=== PATIENT | female | born 1960 | race Caucasian/White ===

== ENCOUNTER 2021-11-18 21:09 | Inpatient (IN) | payer MEDICAID, SELFPAY ==
[~2021-11-18] VITALS: Ht 158.2 cm; Wt 96.6 kg
[2021-11-18 21:35] VITALS: BP 157/72
--- NOTE | 2021-11-18 21:40 | NUR ---
pt taken to lobby.
[2021-11-18] MEDS ORDERED: HYDROcodone/APAP 5/325 MG 1 TAB TAB PO ONE (22:20)
[2021-11-18 23:22] LABS: APPEARANCE,URINE CLEAR (CLEAR); BILIRUBIN,URINE NEGATIVE (NEGATIVE); BLOOD, URINE 1+ (NEGATIVE); COLOR,URINE YELLOW (YELLOW); LEUKOCYTE ESTERASE ,URINE TRACE (NEGATIVE); NITRITE, URINE NEGATIVE (NEGATIVE); PH,URINE 5.5 (5.0-9.0); UGLUCOSE NEGATIVE (NEGATIVE)
[2021-11-18 23:34] LABS: RBC,URINE 0-5 /HPF (0-5)
[2021-11-18 23:38] LABS: BASOPHILS % (AUTO) 0.3 % (0.0-2.0); EOSINOPHILS # (AUTO) 0.2 K/uL (0-0.4); EOSINOPHILS % (AUTO) 3.1 % (0.0-4.0); HEMOGLOBIN 9.7 g/dL (12.0-16.0); LYMPHOCYTES # (AUTO) 2.2 K/uL (2.5-16.5); LYMPHOCYTES % (AUTO) 28.2 % (20.5-51.1); MEAN CORPUSCULAR HEMOGLOBIN 26 pg (27-31); MEAN CORPUSCULAR HGB CONC 33 g/dL (33-37); MONOCYTES # (AUTO) 0.6 K/uL (0.8-1.0); MONOCYTES % (AUTO) 7.3 % (1.7-9.3); NEUTROPHILS # (AUTO) 4.8 K/uL (1.8-7.7); NEUTROPHILS % (AUTO) 61.1 % (42.2-75.2); PLATELET COUNT (AUTO) 239 K/uL (140-450); RED BLOOD CELL COUNT(AUTO) 3.67 MIL/uL (4.20-5.40); RED CELL DISTRIBUTION WIDTH 16.3 % (11.6-13.7); WHITE BLOOD COUNT (AUTO) 7.9 K/uL (4.8-10.8)
[2021-11-19 00:01] LABS: ANION GAP 11.3 (8-16); CARBON DIOXIDE 27.3 mmol/L (21-32); POTASSIUM 4.6 mmol/L (3.5-5.1); TOTAL BILIRUBIN 0.5 mg/dL (0.0-1.0)
[2021-11-19 00:42] LABS: ALBUMIN 3.7 g/dL (3.4-5.0)
--- NOTE | 2021-11-19 01:38 | NUR ---
PT TAKEN TO BED 9
--- NOTE | 2021-11-19 01:45 | NUR ---
61 Y/O FEMALE BIB SELF, C/O RUQ PAIN (9/10) X3 MONTHS. DENIES DIARRHEA, CONFIRMS N/V; SKIN IS PINK/WARM/DRY; AAOX4 WITH EVEN AND STEADY GAIT; LUNGS CLEAR BL; HR EVEN AND REGULAR; PT DENIES ANY FEVER, CP, SOB, OR COUGH AT THIS TIME; PATIENT STATES PAIN OF 9/10 AT THIS TIME; VSS; PATIENT POSITIONED FOR COMFORT; HOB ELEVATED; BEDRAILS UP X1; BED DOWN. ER MD MADE AWARE OF PT STATUS. HX: GALSTONES, HTN, HEART STENT X3 MO AGO [facility]
[2021-11-19] MEDS ORDERED: PIPERACILLIN/TAZOBACTAM 3.375 GM in DEXTROSE 5% 50 ML IV ONE (03:00)
[2021-11-19] MEDS ORDERED: MORPHINE SULFATE 4 MG/ML SYR IVP ONE (03:00)
[2021-11-19] MEDS ORDERED: PIPERACILLIN/TAZOBACTAM 3.375 GM VIAL IV ONE ×3 (03:07→18:04)
[2021-11-19] MEDS ORDERED: HYDROcodone/APAP 7.5/325 MG 1 TAB PO PRN (03:30)
[2021-11-19] MEDS ORDERED: MORPHINE SULFATE 4 MG/ML SYR IVP PRN (03:30)
[2021-11-19] MEDS ORDERED: ATOR40TA PO (05:27)
[2021-11-19] MEDS ORDERED: GLIP5TER PO (05:27)
[2021-11-19] MEDS ORDERED: CARV12.5 PO (05:27)
[2021-11-19] MEDS ORDERED: PANT40EC PO (05:27)
[2021-11-19] MEDS ORDERED: FAMO-92 PO (05:27)
[2021-11-19] MEDS ORDERED: LISI-487 PO (05:27)
[2021-11-19] MEDS ORDERED: TICA60TA PO (05:27)
[2021-11-19] MEDS ORDERED: FURO-570 PO (05:27)
[2021-11-19] MEDS ORDERED: METF-350 PO (05:27)
--- NOTE | 2021-11-19 06:06 | NUR ---
COVID/JAVIER SWAB COLLECTED AND HANDED TO SPARERIBS TRIMMER
[2021-11-19] MEDS ORDERED: ONDANSETRON 4 MG/2 ML VIAL IVP PRN ×2 (07:05→07:25)
--- NOTE | 2021-11-19 07:23 | NUR ---
Report and continuation of care received from DEVI Klein.
--- NOTE | 2021-11-19 07:23 | NUR ---
GIVEN TRANSFER OF CARE REPORT TO DARIN QUINONEZ
[2021-11-19] MEDS ORDERED: ZOLPIDEM 5 MG TAB PO PRN (07:25)
--- NOTE | 2021-11-19 07:45 | NUR ---
Received patient resting in semi-fowlers position with rn cardiac in place. Patient awake A&Ox4, [place] speaking, denies headache, states 3/10 abdominal pain at this time; denies nausea. Additional warm blanket provided per request. Bed locked in lowest position, side rails x 1.
[2021-11-19] MEDS: NACL 0.9% 1,000 ML IV SCH (07:55)
--- NOTE | 2021-11-19 08:31 | NUR ---
Patient appears to be resting comfortably in bed. Vital Signs within normal limits. Respirations even and unlabored.
[2021-11-19 08:40] LABS: BASOPHILS % (AUTO) 0.4 % (0.0-2.0); EOSINOPHILS # (AUTO) 0.4 K/uL (0-0.4); EOSINOPHILS % (AUTO) 4.5 % (0.0-4.0); HEMATOCRIT 27.4 % (36-48); HEMOGLOBIN 9.3 g/dL (12.0-16.0); LYMPHOCYTES # (AUTO) 2.6 K/uL (2.5-16.5); MEAN CORPUSCULAR HEMOGLOBIN 27 pg (27-31); MEAN CORPUSCULAR HGB CONC 34 g/dL (33-37); MEAN CORPUSCULAR VOLUME 79.2 fL (80-94); MONOCYTES # (AUTO) 0.8 K/uL (0.8-1.0); MONOCYTES % (AUTO) 10.1 % (1.7-9.3); NEUTROPHILS # (AUTO) 4.1 K/uL (1.8-7.7); PLATELET COUNT (AUTO) 217 K/uL (140-450); RED BLOOD CELL COUNT(AUTO) 3.46 MIL/uL (4.20-5.40); RED CELL DISTRIBUTION WIDTH 15.9 % (11.6-13.7); WHITE BLOOD COUNT (AUTO) 7.8 K/uL (4.8-10.8)
--- NOTE | 2021-11-19 08:51 | NUR ---
PATIENT HAS BEEN SCREENED AND CATEGORIZED LOW NUTRITION RISK. PATIENT WILL BE SEEN WITHIN 7 DAYS OF ADMISSION. 11/26/21 JAMARCUS GATES MS, RDN
[2021-11-19 09:09] LABS: ANION GAP 15.4 (8-16); CARBON DIOXIDE 25.1 mmol/L (21-32); CREATININE 0.8 mg/dL (0.6-1.3); POTASSIUM 4.5 mmol/L (3.5-5.1)
[2021-11-19 09:55] LABS: MAGNESIUM 2.1 mg/dL (1.8-2.4); PHOSPHORUS 4.4 mg/dL (2.5-4.9)
--- NOTE | 2021-11-19 10:36 | NUR ---
Patient disconnected from bug trimmer; ambulated to restroom with steady/even gait.
--- NOTE | 2021-11-19 10:42 | NUR ---
Pt back into bed + hospital monitor. IVF continued. Bed locked in lowest position, side rails x 1.
[2021-11-19] MEDS ORDERED: DEXTROSE 50% 50 ML SYR IVP PRN (12:20)
[2021-11-19] MEDS: PIPERACILLIN/TAZOBACTAM 3.375 GM in DEXTROSE 5% 50 ML IV SCH ×2 (12:40→18:14)
--- NOTE | 2021-11-19 12:51 | NUR ---
Patient states pain 3/10, no request for additional pain meds at this time. Advised to utilize call light for increased pain. All pt needs met.
--- NOTE | 2021-11-19 13:23 | NUR ---
IV site patent; flushed with 5mL NS with blood return.
--- NOTE | 2021-11-19 14:05 | NUR ---
Patient resting with media monitor and maintenance IVF running. Denies nausea/pain at this time. All needs met. child monitor in place. VSS. Respirations even/unlabored.
--- NOTE | 2021-11-19 15:45 | NUR ---
Patient appears to be resting comfortably in bed. Vital Signs within normal limits. Respirations even and unlabored.
[2021-11-19] MEDS: BLOOD GLUCOSE MONITORING 1 DEV DEV FS SCH ×2 (16:53→20:45)
--- NOTE | 2021-11-19 17:32 | NUR ---
Patient appears to be resting comfortably in bed. Vital Signs within normal limits. Respirations even and unlabored.
--- NOTE | 2021-11-19 18:17 | NUR ---
Pt ambulated to restroom with steady/even gait.
--- NOTE | 2021-11-19 19:12 | NUR ---
Report and transfer of care given to DEVI Slade.
--- NOTE | 2021-11-19 19:25 | NUR ---
ASSUMED CARE OF THIS PATIENT
--- NOTE | 2021-11-19 20:03 | NUR ---
REPORT GIVEN TO TRUONG QUINONEZ AT THIS TIME. TO BE TAKEN TO BED 120B AT THIS TIME TELE
[2021-11-19] MEDS: ATORVASTATIN 20 MG TAB PO SCH (20:46)
[2021-11-19] MEDS: carvediloL 12.5 MG TAB PO SCH (20:46)
--- NOTE | 2021-11-19 21:40 | NUR ---
RECEIVED PT ADMITTED FROM ER VIA RPLACEDO. PT A&OX4, AMBULATES .BERMUDIAN SPEAKING NPO EXCEPT MEDS. EDUCATED PT RE: BS= 124 NO COVERAGE NEEDED.IV 22G IN LAC SL PATENT. VSS: BP: 155/59, P: 61, RR: 18, T: 98.7, O2 SAT:98% ON ROOM AIR. ORIENTED TO ROOM CALL LIGHT TV, AND BED CONTROL. DENIES PAIN. ALL SAFETY MEASURES IN PLACE. WILL CONTINUE TO MONITOR.
--- NOTE | 2021-11-19 22:00 | NUR ---
HS MEDS TAKEN W/SIPS OF WATER. REMAINS NPO. DENIES PAIN BUT STATES THERE IS TIGHTNESS IN HER RUQ. CALL LIGHT WITHIN REACH.
--- NOTE | 2021-11-19 22:40 | NUR ---
BS= 124 NO COVERAGE NEEDED.PT IS COOPERATIVE. VERBALIZES UNDERSTANDING WHY SHE IS NPO EXCEPT MEDS SPOUSE WAS WITH PT IN THE ER. HIS CONTACT INFO FROM THE CHART IS: MARY FERNANDEZ [place]TONIO[place]. [address] . ALL SAFETY MEASURES IN PLACE. CONTINUE TO OBSERVE.
--- NOTE | 2021-11-20 | NUR ---
TOLERATED ZOSYN IVPB WELL NO ADVERSE EFFECTS. CALLS TO GET UP AMBULATED WITH STEADY GAIT TO BATHROOM X1 VOIDED NO BM.O2 SAT 98% ON ROOM AIR. ALL SAFETY MEASURES IN PLACE.
[2021-11-20] MEDS: PIPERACILLIN/TAZOBACTAM 3.375 GM in DEXTROSE 5% 50 ML IV SCH ×5 (00:40→23:01)
[2021-11-20] MEDS ORDERED: PIPERACILLIN/TAZOBACTAM 3.375 GM VIAL IV ONE ×2 (00:51→05:05)
[2021-11-20 04:00] VITALS: BP 145/45
--- NOTE | 2021-11-20 06:30 | NUR ---
VSS: BP:145/45, P:60, RR:18, T:97.6, O2 SAT 98% ON ROOM AIR BS= 99 NO INSULIN COVERAGE NEEDED.
[2021-11-20 06:47] LABS: BASOPHILS % (AUTO) 0.6 % (0.0-2.0); EOSINOPHILS # (AUTO) 0.3 K/uL (0-0.4); EOSINOPHILS % (AUTO) 4.9 % (0.0-4.0); HEMATOCRIT 26.9 % (36-48); LYMPHOCYTES # (AUTO) 1.9 K/uL (2.5-16.5); LYMPHOCYTES % (AUTO) 30.6 % (20.5-51.1); MEAN CORPUSCULAR HEMOGLOBIN 27 pg (27-31); MEAN CORPUSCULAR HGB CONC 33 g/dL (33-37); MEAN CORPUSCULAR VOLUME 79.5 fL (80-94); MONOCYTES # (AUTO) 0.5 K/uL (0.8-1.0); MONOCYTES % (AUTO) 8.9 % (1.7-9.3); NEUTROPHILS # (AUTO) 3.4 K/uL (1.8-7.7); PLATELET COUNT (AUTO) 207 K/uL (140-450); RED BLOOD CELL COUNT(AUTO) 3.39 MIL/uL (4.20-5.40); RED CELL DISTRIBUTION WIDTH 15.4 % (11.6-13.7); WHITE BLOOD COUNT (AUTO) 6.2 K/uL (4.8-10.8)
[2021-11-20] MEDS: BLOOD GLUCOSE MONITORING 1 DEV DEV FS SCH ×4 (06:47→20:49)
--- NOTE | 2021-11-20 07:20 | NUR ---
ENDORSED REPORT TO DAY SHIFT RN FOR CONTINUITY OF CARE. SURGICAL CONSENT ON CHART. DR BROWN NEEDS TO EXPLAIN PROCEDURE TO PT. EACH NEEDS TO SIGN THE CONSENT. DAY SHIFT TO FOLLOW UP.
--- NOTE | 2021-11-20 07:30 | NUR ---
RECEIVED PT AAOX4. NO SOB NOTED. NO C/O PAIN AT THIS TIME. IV TO LAC PATENT AND INTACT. CHEST, DIMINISHED AIR ENTRY TO THE BASES. ABDOMEN SOFT, BOWEL SOUNDS PRESENT. NO EDEMA NOTED. NPO MAINTAINED. INSTRUCTED PT TO CALL FOR ASSISTANCE, CALL LIGHT WITHIN REACH, PT VERBALIZED UNDERSTANDING.
[2021-11-20 07:31] LABS: ANION GAP 14.4 (8-16); CARBON DIOXIDE 23.7 mmol/L (21-32); CREATININE 0.8 mg/dL (0.6-1.3); POTASSIUM 4.1 mmol/L (3.5-5.1)
[2021-11-20 07:59] LABS: PHOSPHORUS 4.1 mg/dL (2.5-4.9)
[2021-11-20 08:00] VITALS: BP 151/76
[2021-11-20] MEDS: lisinopriL 20 MG TAB PO SCH (09:58)
[2021-11-20] MEDS: FUROSEMIDE 40 MG TAB PO SCH (09:58)
[2021-11-20] MEDS: carvediloL 12.5 MG TAB PO SCH ×2 (09:58→20:42)
[2021-11-20] MEDS: PANTOPRAZOLE 40 MG TABEC PO SCH (09:58)
--- NOTE | 2021-11-20 11:05 | NUR ---
SPOKE WITH DR. BROWN ON THE PHONE, STATED HE WILL COME TO SEE PT SOON. PT NOTIFIED, VERBALIZED UNDERSTANDING. NPO MAINTAINED ORDERED.
[2021-11-20 12:00] VITALS: BP 151/68
--- NOTE | 2021-11-20 13:30 | NUR ---
PT SEEN BY DR. BROWN AT THE BEDSIDE. NO SURGICAL INTERVENTION AT THIS TIME. PT TOLERATED CLEAR LIQUIDS. NO C/O ABDOMINAL PAIN. WILL CONTINUE TO MONITOR.
[2021-11-20 16:00] VITALS: BP 150/65
--- NOTE | 2021-11-20 18:30 | NUR ---
PT TOLERATED FULL LIQUIDS FOR DINNER. WILL NOTIFY DR. LOPEZ.
[2021-11-20] MEDS: INSULIN LISPRO SLIDING SCALE 100 UNITS/ML VIAL SUBQ PRN ×2 (18:34→20:50)
[2021-11-20] MEDS: NACL 0.9% 1,000 ML IV SCH ×2 (18:36)
--- NOTE | 2021-11-20 19:12 | NUR ---
SPOKE WITH DR. LOPEZ, STATED HE WILL KEEP PT TONIGHT AND SEE HOW HER BLOOD WORKS IN AM WILL GHAZALA WILL GO FROM THERE. PT MADE AWARE, VERBALIZED UNDERSTANDING.
--- NOTE | 2021-11-20 19:36 | NUR ---
PT RESTING. NO SOB NOTED. NO SIGNS OF PAIN ENDORSED TO NEXT SHIFT NURSE FOR CONTINUITY OF CARE.
--- NOTE | 2021-11-20 19:40 | NUR ---
PT RESTING IN BED NO C/O PAIN OR DISTRESS NOTED.POC DISCUSSED WITH AM NURSE FOR CONTINUITY OF CARE.
[2021-11-20 20:00] VITALS: BP 151/76
[2021-11-20] MEDS: ATORVASTATIN 20 MG TAB PO SCH (20:42)
--- NOTE | 2021-11-20 21:00 | NUR ---
HS MEDS GIVEN. PT TOLERATED IT WELL. VSS AFEBRILE. BS= 153, COVERED WITH 2UNITS HUMALOG INSULIN PER SLIDING SCALE. PT STABLE. ALL SAFETY MEASURES IN PLACE.
[2021-11-21] VITALS: BP 129/54
[2021-11-21] MEDS: NACL 0.9% 1,000 ML IV SCH (00:12)
--- NOTE | 2021-11-21 00:36 | NUR ---
ZOSYN IVPB INFUSED NO REACTION NOTED. PT COOPERATIVE. SLEEPING BUT EASILY AROUSABLE. NAD.CALL LIGHT WITHIN REACH. CONTINUE TO OBSERVE.
[2021-11-21] MEDS: PIPERACILLIN/TAZOBACTAM 3.375 GM in DEXTROSE 5% 50 ML IV SCH ×2 (05:07→11:39)
[2021-11-21] MEDS: BLOOD GLUCOSE MONITORING 1 DEV DEV FS SCH ×3 (06:54→16:32)
--- NOTE | 2021-11-21 07:15 | NUR ---
ENDORSED PT REPORT TO AM RN. BS= 109 NO COVERAGE NEEDED. NO SURGERY NEEDED PER DR. BROWN IN HIS PROGRESS NOTES. JOHN ROMAN WAITING FOR RESULTS OF AM LAB DRAW. NO ORDER FOR DISCHARGE YET. CNTINUE TO MONITOR.
[2021-11-21 07:21] LABS: BASOPHILS % (AUTO) 0.5 % (0.0-2.0); EOSINOPHILS # (AUTO) 0.4 K/uL (0-0.4); EOSINOPHILS % (AUTO) 5.2 % (0.0-4.0); HEMATOCRIT 27.5 % (36-48); HEMOGLOBIN 9.3 g/dL (12.0-16.0); LYMPHOCYTES # (AUTO) 2.2 K/uL (2.5-16.5); LYMPHOCYTES % (AUTO) 31.4 % (20.5-51.1); MEAN CORPUSCULAR HEMOGLOBIN 27 pg (27-31); MEAN CORPUSCULAR HGB CONC 34 g/dL (33-37); MEAN CORPUSCULAR VOLUME 78.6 fL (80-94); MONOCYTES # (AUTO) 0.6 K/uL (0.8-1.0); MONOCYTES % (AUTO) 8.1 % (1.7-9.3); NEUTROPHILS # (AUTO) 3.8 K/uL (1.8-7.7); NEUTROPHILS % (AUTO) 54.8 % (42.2-75.2); PLATELET COUNT (AUTO) 224 K/uL (140-450)
[2021-11-21 07:29] LABS: ANION GAP 13.1 (8-16); CARBON DIOXIDE 26.5 mmol/L (21-32); CREATININE 0.9 mg/dL (0.6-1.3); POTASSIUM 3.6 mmol/L (3.5-5.1)
[2021-11-21 07:48] LABS: MAGNESIUM 1.8 mg/dL (1.8-2.4); PHOSPHORUS 3.9 mg/dL (2.5-4.9)
[2021-11-21] MEDS: FUROSEMIDE 40 MG TAB PO SCH (08:42)
[2021-11-21] MEDS: PANTOPRAZOLE 40 MG TABEC PO SCH (08:42)
[2021-11-21] MEDS: carvediloL 12.5 MG TAB PO SCH (08:42)
[2021-11-21] MEDS: lisinopriL 20 MG TAB PO SCH (08:42)
--- NOTE | 2021-11-21 10:48 | NUR ---
PT STABLE. NO S/S OF DISTRESS. BREATHING SYMMETRICAL. CALL LIGHT IN REACH. ALL SAFETY MEASURES IN PLACE
[2021-11-21] MEDS ORDERED: LEVO750T51 PO (11:09)
[2021-11-21] MEDS: INSULIN LISPRO SLIDING SCALE 100 UNITS/ML VIAL SUBQ PRN (11:40)
[2021-11-21 12:00] VITALS: BP 132/58
[2021-11-21 12:38] VITALS: BP 132/58
[2021-11-21 16:00] VITALS: BP 135/72
--- NOTE | 2021-11-21 16:43 | NUR ---
PT DISCHARGED HOME WITH FAMILY IN PERSONAL VEHICLE. ALL PERSONAL BELONGINGS IN POSSESSION. PT STABLE. IV REMOVED, CANULA INTACT. PT TOLERATED WELL. ID BANDS REMOVED. ALL SAFETY MEASURES IN PLACE
== END 2021-11-21 16:40 | disposition home or self-care (01) ==
LOC: MED 21:09 → MTU 11-19 03:36
PROVIDERS: ADMIT General Practice; ATTEND General Practice
DX: K81.0 Acute cholecystitis (principal); F03.90 Unspecified dementia, unspecified severity, without behavioral disturbance, psychotic disturbance, mood disturbance, and anxiety; D64.9 Anemia, unspecified; E11.9 Type 2 diabetes mellitus without complications; E78.5 Hyperlipidemia, unspecified; I10 Essential (primary) hypertension; I25.10 Atherosclerotic heart disease of native coronary artery without angina pectoris; Z20.822 Contact with and (suspected) exposure to COVID-19; I25.2 Old myocardial infarction; Z79.899 Other long term (current) drug therapy; Z79.82 Long term (current) use of aspirin
CPT/HCPCS: 36415; 71045; 76705; 80048; 80053; 81001; 82948; 83690; 83735; 83880; 84100; 84484; 85025; 87040; 87081; 87086; 93005; 96365; 96375; 99291; J1815; J2270; J2543; J7060; Q0092